=== PATIENT | male | born 1950 | race Caucasian/White ===

== ENCOUNTER 2017-04-07 19:14 | Observation (INO) | payer OTHER ==
--- NOTE | ~2017-04-07 | CR72 ---
[facility] A Service of [facility] & [facility] / [facility] RADIOLOGY TEXT RESULTS PATIENT: NATHALIA PIERRE LOCATION: [facility] 568-01 : 48 UNIT #: [id number] AGE: [address]: Rohan Lawrence MD SEX: M ORDER DR: [id number] [facility] [address] [facility]. [place], [place] [address] [id number] I MR#: [id number] Acc #: [id number] NAME: NATHALIA PIERRE. : 1950 SEX: M STUDY DATE/TIME: 04/07/2017 20:00 UNIT: [facility] ROOM: [facility] STUDY DESCRIPTION: CR Chest Single View Portable Attending Physician: Rohan Lawrence M.D. Ordering Physician: Ed Alan Ferrera M.D. Primary Care Physician: Harry Lau M.D. MEDICAL IMAGING REPORT This report is preliminary unless electronic signature is present EXAM Single view of the chest dated 04/07/2017. COMPARISON Single-view chest dated 12/07/2015. HISTORY Chest pain, cough, shortness of air and lethargy since 04/06/2017. FINDINGS Single view of the chest was obtained. No acute cardiopulmonary disease. Lungs are well aerated. Heart and mediastinum are unremarkable. [id number] left glenohumeral joint arthritic changes are noted. Dictated by... Jhon Oconnor M.D. THIS IS AN ELECTRONICALLY VERIFIED REPORT Jhon Oconnor M.D. at 04/08/2017 11:36 AM CPR/psc TD: 04/08/2017 00:49 JOB #: [id number] MEDICAL IMAGING REPORT Page 1 of 1 COPY
--- NOTE | ~2017-04-07 | TH ---
Unit #: [id number] #: [id number] Patient: NATHALIA PIERRE [id number] [address] [address] [id number] I MR#: [id number] NAME: NATHALIA PIERRE : 1950 SEX: M STUDY DATE/TIME: 04/08/2017 UNIT: [facility] ROOM: 568 STUDY DESCRIPTION: Cardiolite imaging . Attending Physician: Rohan Lawrence M.D. Primary Care Physician: Harry Lau M.D. CARDIOLOGY REPORT EXAM Cardiolite imaging. PROCEDURE Using 99m labeled Cardiolite, rest and stress SPECT images were obtained. Multiple SPECT images were obtained in various views, including horizontal and vertical long axis and short axis views of the left ventricle. Images were obtained by gated SPECT method. The patient was administered 10.12 mCi of Cardiolite at rest. The patient was administered 32.0 mCi of Cardiolite at peak exercise. Total exercise time was 8 minutes 13 seconds. On the stress images there is normal perfusion noted. The rest images show normal perfusion. Comparing rest and stress images there is no stress induced ischemia noted. The left ventricular ejection fraction is calculated to be 69%. There is no focal wall motion abnormality seen. CONCLUSION 1. No stress induced ischemia noted. 2. The left ventricular ejection fraction is calculated to be 69%. 3. There is no focal wall motion abnormality seen. 4. The left ventricular size is small. 5. Normal exercise Cardiolite stress test. Dictated by... Gayle Cardenas TD: 04/08/2017 12:14 JOB #: [id number] CC: Harry Lau M.D. CARDIOLOGY REPORT Page 1 of 1 X Apurva Mayorga MD <ELECTRONICALLY SIGNED> 04/18/17 1429 CARDIOLOGY REPORT
--- NOTE | ~2017-04-07 | EKG ---
PATIENT: NATHALIA PIERRE UNIT #: [id number] Ventricular Rate: 65 BPM Atrial Rate: 65 BPM P-R Interval: 186 ms QRS Duration: 84 ms Q-T Interval: 418 ms QTC Calculation(Bezet): 434 ms P Rice: 65 degrees Calculated R Rice: 4 degrees Calculated T Rice: 43 degrees Diagnosis Line: Normal sinus rhythm Diagnosis Line: Normal ECG Diagnosis Line: When compared with ECG of 07-APR-2017 19:34, Diagnosis Line: (unconfirmed) Diagnosis Line: No significant change was found Diagnosis Line: Confirmed by DONA PRAKASH MD ([id number]) on Diagnosis Line: 04/09/2017 10:36:55 AM INTERPRETING MD: OLINDA SUMNER
--- NOTE | ~2017-04-07 | ST ---
Unit #: [id number] #: [id number] Patient: NATHALIA PIERRE [id number] [facility]. [address] [address] [id number] I MR#: [id number] NAME: NATHALIA PIERRE. : 1950 SEX: M STUDY DATE/TIME: 04/08/2017 UNIT: [facility] ROOM: [facility] STUDY DESCRIPTION: Attending Physician: Rohan Lawrence M.D. Primary Care Physician: Harry Lau M.D. CARDIOLOGY REPORT EXAM Cardiolite exercise stress test. REASON FOR EXAM Constant chest discomfort. FINDINGS Baseline EKG is sinus rhythm with a ventricular rate of 60 and inverted T waves in V1. PROCEDURE The patient exercised on a treadmill according to the Gagan protocol for 8 minutes and 13 seconds, achieving a work level of 10.10 METs. Resting heart rate was 60. Maximal heart rate was 136 beats per minute representing 90% of maximal age predicted heart rate. The patient's symptoms were some fatigue. There were rare PVC couplets noted during the test. The test was stopped due to achieving heart rate. IMPRESSION This is a negative test. There were no ST segment changes. The patient experienced mild fatigue during the test. There were rare couplets noted during the test. The patient returned to baseline at the end of test. Please correlate with Cardiolite imaging. Dictated by... Geradline Griffith APRN for Gayle Cardenas TD: 04/08/2017 11:13 JOB #: [id number] Unit #: [id number] #: [id number] Patient: NATHALIA PIERRE CARDIOLOGY REPORT Page 1 of 1 X CARDIOLOGY REPORT
--- NOTE | ~2017-04-07 | EKG ---
PATIENT: NATHALIA PIERRE UNIT #: [id number] Ventricular Rate: 73 BPM Atrial Rate: 73 BPM P-R Interval: 176 ms QRS Duration: 82 ms Q-T Interval: 388 ms QTC Calculation(Bezet): 427 ms P Ogden: 44 degrees Calculated R Ogden: -27 degrees Calculated T Ogden: 22 degrees Diagnosis Line: Normal sinus rhythm Diagnosis Line: Possible Left atrial enlargement Diagnosis Line: Left ventricular hypertrophy Diagnosis Line: Abnormal ECG Diagnosis Line: When compared with ECG of 07-DEC-2015 13:53, Diagnosis Line: No significant change was found Diagnosis Line: Confirmed by DONA PRAKASH MD ([id number]) on Diagnosis Line: 04/09/2017 10:31:58 AM INTERPRETING MD: OLINDA SUMNER
--- NOTE | ~2017-04-07 | CT15 ---
[facility] A Service of [facility] & [facility] / [facility] RADIOLOGY TEXT RESULTS PATIENT: NATHALIA PIERRE LOCATION: [facility] [place] [facility] 568-01 : [birth year] UNIT #: [id number] AGE: [address]: Rohan Lawrence MD SEX: M ORDER DR: [id number] [facility] [address] [facility]. [place], [place] [address] [id number] I MR#: [id number] Acc #: [id number] NAME: NATHALIA PIERRE. : 1950 SEX: M STUDY DATE/TIME: 04/07/2017 21:49 UNIT: [facility] [place] [facility] ROOM: [facility] STUDY DESCRIPTION: CT Angio Chest Attending Physician: Rohan Lawrence M.D. Ordering Physician: Paddy Dee M.D. Primary Care Physician: Harry Lau M.D. MEDICAL IMAGING REPORT This report is preliminary unless electronic signature is present EXAM CT scan of the chest with contrast INDICATIONS Chest pain with discomfort when swallowing, evaluate for possible thoracic aortic aneurysm. Symptoms started today. There is a comparison 08/04/2016. Follow up known thoracic aortic aneurysm. TECHNIQUE The patient was given 100 mL of Isovue-370 and spiral imaging was performed through the chest. 3-D reconstructions of the aorta were generated. This CT exam was performed with one or more of the following radiation dose reduction techniques: Automatic exposure control, adjustment of mA and/or kV according to patient size, and iterative reconstruction. FINDINGS The lungs are clear. The visualized thyroid gland is normal. There is no mediastinal or hilar adenopathy. The visualized portions of the upper abdomen are normal except for prior cholecystectomy. The ascending aorta is enlarged in a fusiform fashion. It measures about 4.7 cm in transverse dimension and is unchanged from the previous study from 08/04/2016. There is no dissection. The descending aorta is normal in size. The aortic root is about 4.3 cm in transverse dimension. IMPRESSION 1. Aortic root is 4.3 cm in transverse dimension and the ascending aorta is about 4.7 cm in transverse dimension, and both areas appear unchanged from 08/04/2016. 2. There is no active disease. There is no dissection. [facility]. [facility] A Service of [facility] & [facility] / [facility] RADIOLOGY TEXT RESULTS PATIENT: NATHALIA PIERRE LOCATION: [facility] [place] [facility] 568-01 : [birth year] UNIT #: [id number] AGE: [address]: Rohan Lawrence MD SEX: M ORDER DR: Dictated by... Doc Asencio M.D. THIS IS AN ELECTRONICALLY VERIFIED REPORT Doc Asencio M.D. at 04/08/2017 5:49 AM FEL/psc TD: 04/08/2017 02:15 JOB #: [id number] MEDICAL IMAGING REPORT Page 1 of 1 COPY
--- NOTE | ~2017-04-07 | HP ---
Unit #: [id number] #: [id number] Patient: NATHALIA PIERRE [id number] [address] [place], [place] [address] [id number] I MR#: [id number] NAME: NATHALIA PIERRE ROOM: 568 Age: 67 Sex: M Admission Date: 04/07/2017 : 1950 Attending Physician: Rohan Lawrence M.D. Primary Care Physician: Harry Lau M.D. HISTORY AND PHYSICAL CHIEF COMPLAINT Chest discomfort. HISTORY OF PRESENT ILLNESS The patient is a 67-year-old male who is known to Dr. Lau, who has a history of a single vessel coronary artery disease where there is a 70%-75% stenosis in the mid right coronary artery per cardiac catheterization 2013. In DJIBOUTIAN and DJIBOUTIAN cranial views the stenosis was less severe. He underwent FFR to the right coronary artery, where the stenosis was less than 50%, which was improved from previous. Fractional flow reserve measurement was taken and was 0.98 and 1.1. The patient was treated with medical management. He also has a history of an abdominal aortic aneurysm measuring 4.4-4.7 cm that he follows with the [facility] for. Additional past medical history includes hypertension, hyperlipidemia, hypothyroidism and GERD. He rarely smokes cigar and rarely drinks alcohol. The patient presented to the emergency department after he had been having two days of tiredness and fatigue. He has had some midsternal chest discomfort that hurts when he swallows. When he swallows he then feels a sharp pain. He denies any diaphoresis or radiation of pain. He reports that this pain is similar to the chest pain he had back in 2014, but it is currently less severe. The patient reports that his pain started throughout the day and again has been a constant chest discomfort. The patient apparently called Dr. Lau's office and did talk with nurse practitioner Quan Dotson. It was recommended that the patient come to the emergency department for further workup. The patient's EKG showed normal sinus rhythm and his troponin was less than 0.03 times 2. PAST MEDICAL HISTORY 1. Cardiac catheterization on 02/21/2014 with left main, left circumflex and left anterior descending artery normal. Right coronary artery immediately distal to the acute right ventricular branch showed 70%-75% stenosis with no improvement after intracoronary nitroglycerin. The stenosis was less severe in the DJIBOUTIAN and DJIBOUTIAN cranial views. Ejection fraction was 50%. FFR measurement in the right coronary artery was 0.98 and 1.1. He was treated medically. 2. Ascending aortic dilatation measuring 4.4-4.[address] scan in 2013. 3. Hypertension. 4. Hyperlipidemia. 5. GERD. 6. Hypothyroidism. 7. Rare tobaccoism, rare alcohol use. Unit #: [id number] #: [id number] Patient: NATHALIA PIERRE PAST SURGICAL HISTORY 1. Cardiac catheterization as detailed above. 2. Cholecystectomy causing a small bowel obstruction. 3. Appendectomy. 4. Exploratory laparotomy. 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 He quit smoking in 1974. He does drink alcohol on occasion and may have a rare cigar. He lives with his , who has cardiomyopathy. FAMILY HISTORY Negative for coronary artery disease. ALLERGIES Amoxicillin and Augmentin. HOME MEDICATIONS 1. Coreg 6.25 mg p.o. b.i.d. 2. Lipitor 40 mg p.o. at bedtime. 3. Plavix 75 mg p.o. daily. 4. Synthroid 0.05 mg p.o. daily. 5. Aspirin 81 mg p.o. daily. 6. Pepcid AC 20 mg p.o. daily. 7. Nitroglycerin 0.4 mg sublingual p.r.n. chest pain. REVIEW OF SYSTEMS A 10-point review of systems has been done and is considered otherwise negative except as indicated in history of present illness. PHYSICAL EXAMINATION GENERAL: The patient is awake and alert, in no acute distress. VITALS: Temperature 98.2, heart rate 69, respiratory rate 18, blood pressure 142/89, oxygenating 98%. HEENT: Head is atraumatic, normocephalic. Pupils equal, round and reactive. Extraocular movements are intact. No drainage from ears or nares. NECK: Supple. Trachea midline. Normal carotid upstrokes. No thyromegaly or lymphadenopathy appreciated. LUNGS: Lungs are clear to auscultation bilaterally. No wheezes, rales or rhonchi. HEART: S1 and S2. Regular rate and rhythm. No murmurs, rubs or gallops appreciated. ABDOMEN: Soft, nontender and nondistended. Bowel sounds are positive all four quadrants. SKIN: Warm, dry and intact without any unusual rashes or lesions. EXTREMITIES: No clubbing, edema or cyanosis. NEUROLOGIC: The patient is alert and oriented times four. He is pleasant and conversant. No focal deficits. Cranial nerves II through XII appear to be intact. DIAGNOSTIC STUDIES LABORATORY: White blood cell count 10, hemoglobin 13.5, hematocrit 41.3, platelets 197, sodium 134, potassium 3.7, chloride 103, CO2 26, BUN 18, creatinine 1, glucose 100, troponin less than 0.03 times 2. CARDIOVASCULAR: EKG shows normal sinus rhythm. Unit #: [id number] #: [id number] Patient: NATHALIA PIERRE ASSESSMENT 1. Atypical chest pain. Rule out pericarditis. 2. Single vessel coronary artery disease in the RCA. 3. Abdominal aortic aneurysm 4.4-4.[address] in 2013. 4. Hypertension. 5. Hyperlipidemia. 6. GERD. 7. Hypothyroidism. PLAN The patient will be admitted to Dr. Lau. Will check a lipid panel, TSH and magnesium. Will keep the patient n.p.o. and do an exercise Cardiolite stress test today. The patient will also have a two-dimensional echocardiogram to rule out pericarditis. A sedimentation rate has been ordered. Dictated by Lorri Weathers A.P.R.N. for Harry Lau M.D. AM/nahun TD: 04/08/2017 11:19 JOB #: [id number] HISTORY AND PHYSICAL Page 1 of 1 X Lorri Weathers APRN X HISTORY AND PHYSICAL
[~2017-04-07 19:14] MED LIST: ASPIRIN81 MG PO; CLOPIDOGREL75 MG PO; COREG3.125 MG PO; FAMOTIDINE20 M1 PO; LIPITOR40 MG PO; LISINOPRIL5 MG PO; NITROGLYGERIN0.4 MG SL; SYNTHROID0.05 MG PO
[2017-04-07 19:56] LABS: BASOPHIL# 0.1 X10e3 (0-0.3); BASOPHIL% 0.8 % (0-2.5); EOSINOPHIL# 0.2 X10e3 (0-0.7); EOSINOPHIL% 2.4 % (0.0-7.0); HEMATOCRIT 41.3 % (38.0-50.0); HEMOGLOBIN 13.9 gm/dL (13.0-16.0); LYMPHOCYTE# 3.1 X10e3 (1.0-3.5); LYMPHOCYTE% 30.9 % (17.0-45.0); MEAN CELL VOLUME 92.8 FL (83-96); MEAN CORPUSCULAR HEMOGLOBIN 31.3 PG (28-34); MEAN CORPUSCULAR HGB CONC 33.7 g/dL (30-36); MEAN PLATELET VOLUME 8.2 FL (6.5-11.5); MONOCYTE# 1.2 X10e3 (0-1.0); MONOCYTE% 12.3 % (3.0-12.0); NEUTROPHIL# 5.3 X10e3 (1.5-7.1); NEUTROPHIL% 53.6 % (40-75); PLATELET COUNT 197 X10e3 (140-420); RED BLOOD COUNT 4.45 X10e (3.90-5.60); RED CELL DISTRIBUTION WIDTH 13.4 % (11.0-15.5)
[2017-04-07 19:57] LABS: DIFF IND NO
[2017-04-07 20:22] LABS: ALBUMIN SERUM 4.2 g/dL (3.5-5.0); BILIRUBIN, DIRECT 0.1 mg/dL (0.0-0.2); BILIRUBIN,INDIRECT 0.8 mg/dL (0.0-0.9); BILIRUBIN,TOTAL 0.9 mg/dL (0.2-2.0); CALCIUM SERUM 8.8 mg/dL (8.4-10.2); GLOM FILT RATE Estimated 76.5 mL/min (>60); POTASSIUM 3.7 mmol/L (3.5-5.1)
[2017-04-07] MEDS ORDERED: COREG6.25 MG PO (21:21)
[2017-04-07] MEDS ORDERED: LIPITOR40 MG PO (21:21)
[2017-04-07] MEDS ORDERED: CLOPIDOGREL75 MG PO (21:22)
[2017-04-07] MEDS ORDERED: NITROQUICK0.4 MG SL (21:22)
[2017-04-07] MEDS ORDERED: SYNTHROID0.05 MG PO (21:22)
[2017-04-07] MEDS ORDERED: ASPIRIN81 M2 PO (21:22)
[2017-04-07] MEDS ORDERED: PEPCID AC20 MG PO (21:22)
[2017-04-07 21:33] LABS: POC - CKMB <1.0 ng/mL (0.0-7.9); POC - TROPONIN <0.05 ng/mL (<=0.05)
[2017-04-08 00:20] LABS: %MB 1.6 % (0.0-4.0); MB 1.3 ng/ml
[2017-04-08 06:24] LABS: %MB 1.7 % (0.0-4.0); MB 1.1 ng/ml
[2017-04-08 08:37] LABS: MAGNESIUM 2.3 mg/dL (1.6-3.0)
[2017-04-08] MEDS ORDERED: PROTONIX PO (17:59)
== END 2017-04-08 18:35 | disposition home or self-care (01) ==
LOC: CED 19:14 → C5C 21:24 → CEDOF 21:24 → C5C 22:16
PROVIDERS: Internal Medicine Cardiovascular Disease
DX: R07.89 Other chest pain (principal); I10 Essential (primary) hypertension; E78.5 Hyperlipidemia, unspecified; I25.10 Atherosclerotic heart disease of native coronary artery without angina pectoris; M19.012 Primary osteoarthritis, left shoulder; I71.2 Thoracic aortic aneurysm, without rupture; K21.9 Gastro-esophageal reflux disease without esophagitis; E03.9 Hypothyroidism, unspecified; Z79.82 Long term (current) use of aspirin; Z79.899 Other long term (current) drug therapy; Z90.49 Acquired absence of other specified parts of digestive tract; Z87.891 Personal history of nicotine dependence; Z88.1 Allergy status to other antibiotic agents
CPT/HCPCS: 36415; 71010; 71275; 78452; 80048; 80061; 80076; 82550; 82553; 83735; 84443; 84484; 85025; 85652; 93005; 93017; 93306; 96374; 99285; A9500; G0378; Q9967